=== PATIENT | male | born 1960 | race Caucasian/White ===

== ENCOUNTER 2019-10-06 05:09 | Inpatient (IN) ==
--- NOTE | 2019-09-07 14:30 | PAT Medication Instructions ---
Medication Instructions Date of Service September 07, 2019 Home Medications celecoxib 200 mg capsule 200 mg PO QAM acetaminophen [Tylenol Extra Strength] 1,000 mg PO Q6H PRN ASK your surgeon for instructions celecoxib 200 mg capsule 200 mg PO QAM Take morning of surgery With a small sip of water, OTHERWISE NOTHING TO EAT OR DRINK AFTER MIDNIGHT: acetaminophen [Tylenol Extra Strength] 1,000 mg PO Q6H PRN (okay to take up to 4 hours prior to surgery if needed) Take evening before surgery acetaminophen [Tylenol Extra Strength] 1,000 mg PO Q6H PRN (if needed) Other Notes If you have any questions please call us at [phone] or [phone] or [phone] or [phone]
--- NOTE | 2019-09-08 13:51 | Anesthesiology Consultation ---
Date of Service September 08, 2019 Assessment & Plan (1) Encounter for pre-operative examination: Chart Review Chart Review: Acceptable Risk for Surgery and Patient seen in Pre Admission Testing Teaching & Discussion Instructed NPO after midnight before surgery, except medications with 15 cc of water. Medication instructions provided according to the PAT guidelines. History Surgery Operation Date: 10/06/19 10:55 Proposed Procedures p Right Total Hip Replacement - Michael Alvarez MD Height/Weight Height: 5 ft 6 in Weight: 81.6 kg Allergies Allergy/AdvReac Type Severity Reaction Status Date / Time No Known Allergies Allergy Verified 09/06/19 08:10 Medications Home Medications Medication Instructions Recorded Confirmed Last Taken celecoxib 200 mg capsule 200 mg PO QAM 08/19/19 09/06/19 Unknown acetaminophen [Tylenol Extra 1,000 mg PO Q6H PRN 09/06/19 09/06/19 Unknown Strength] Past Medical History Medical History Degenerative joint disease of right hip Kidney stones Osteoarthritis Exercise / Class Metabolic Activity II 4-5 Yardwork/Stairs/Walk up hill (Denies CP or SOB with 1 FOS) Past Family History Family History Father Family history of diabetes mellitus Past Surgical History Surgical History History of colonoscopy History of cystoscopy STONE REMOVAL History of lithotripsy Hx of vasectomy [place] teeth removed Past Anesthesia History No Hx of Anesthesia Complications and No Family Hx of Anesthesia Complications History of PONV No Hx of PONV and No Hx of Motion Sickness Social History Smoking Status: Never smoker tobacco type: smokeless tobacco Do You Dip or Chew Tobacco: Yes (ADVISED NONE AM DOS) Hx Alcohol Use: Yes Alcohol type: beer alcohol intake frequency: a few times a week Hx Substance Use: No substance use type: does not use Review of Systems Pt denies any recent chest pain, shortness of breath, palpitations, cough, fever or URI. +common cold symptoms currently resolving Physical Exam Vital Signs BP: 162/87 -- pt seen by PCP 09/07, BP 130/70. P: 78bpm SPO2: 96% RA T: 98.9 F R: 12 ENMT Mouth: + dental restorations (partial upper); no chipped teeth and no loose teeth Thyromental Distance: > or= 3.5 Finger Breadths (3.5) Mallampati Class: II Neck + short neck; neck extension not limited Respiratory normal respiratory effort Auscultation: lungs clear to auscultation bilaterally Cardiovascular Rate/Rhythm: regular rate and regular rhythm Heart Sounds: no murmur Vessels: no carotid bruit Extremities: no edema Testing Laboratory Results 09/08/19 14:02 PT 10.4 Seconds (9.0-12.0) 09/08/19 14:02 INR 1.0 (0.9-1.1) 09/08/19 14:02 APTT 25.3 Seconds (21.0-31.0) 09/08/19 14:02 Blood Type O Positive 09/08/19 14:02 Antibody Screen NEGATIVE 09/08/19 14:02 09/07/19 SODIUM: 140 POTASSIUM: 4.6 CHLORIDE: 104 CO2: 27 BUN: 25 CREATININE: 1.1 GLUCOSE: 96 Electrocardiogram Date: 09/08/19 Findings: + NSR @ (70bpm) Left axis deviation. iRSR' pattern in V1 suggests RVCD. Moderate voltage criteria for LVH, may be normal variant. No significant change from EKG from 05/03/11. Chest X-Ray Date: 09/08/19 Findings: + NAD
--- NOTE | 2019-09-08 14:19 | XRay Report ---
XR chest Pre-admission PA/Lat CLINICAL HISTORY: PAT preoperative COMPARISON STUDY: No previous studies for comparison. FINDINGS: The bones soft tissues and hemidiaphragms are normal. The cardiomediastinal silhouette is n ormal. The lungs are clear. The pulmonary vasculature is normal. IMPRESSION: Negative chest. The above report was generated using voice recognition software. It may contain grammatical, syntax or spelling errors. Electronically signed by: Rodriguez Romero M.D. 09/08/2019 2:18 PM
[2019-09-08 14:39] LABS: Basophils # (auto) 0.02 K/uL (0-0.2); Basophils % (auto) 0.2 %; Eosinophils # (auto) 0.16 K/uL (0-0.5); Hemoglobin 15.2 g/dL (14.0-18.0); Immature Granulocytes # (auto) 0.02 K/uL (0.00-0.02); Immature Granulocytes % (auto) 0.2 %; Lymphocytes # (auto) 1.76 K/uL (1.2-3.4); Lymphocytes % (auto) 21.8 %; Mean Corpuscular Hemoglobin 30.7 pg (25-34); Mean Corpuscular Volume 92.9 fL (80-100); Mean Platelet Volume 9.1 fL (7.4-10.4); Monocytes # (auto) 0.43 K/uL (0.11-0.59); Monocytes % (auto) 5.3 %; Neutrophils % (auto) 70.5 %; Platelet Count 263 K/uL (130-400); RDW Coefficient of Variation 13.4 % (11.5-14.5); RDW Standard Deviation 45.6 fL (36.4-46.3); Red Blood Count 4.95 M/uL (4.7-6.1); White Blood Count 8.09 K/uL (4.8-10.8)
[2019-09-08 14:48] LABS: Partial Thromboplastin Ratio 0.9; Partial Thromboplastin Time 25.3 Seconds (21.0-31.0); Prothrombin Time 10.4 Seconds (9.0-12.0)
--- NOTE | 2019-09-19 11:06 | History and Physical Report ---
DATE OF ADMISSION: 10/06/2019 CHIEF COMPLAINT: Right hip pain, groin pain. 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 He has several year history of right hip pain and discomfort. He describes it has gotten worse over time. He saw my partner, Dr. Lehman and now referred to me for surgical treatment. He describes groin pain, thigh pain. No back pain. He has a walking tolerance of about 2 blocks before it really starts to hurt. He takes anti-inflammatories with minimal relief. He would like to have his hip replaced. He has difficulty putting his shoes and socks on. He has nighttime pain. PAST MEDICAL HISTORY: Noncontributory. PREVIOUS SURGERIES: None. ALLERGIES: None. CURRENT MEDICINES: Include: 1. Celebrex. 2. Tylenol. SOCIAL HISTORY: A 59-year-old male. He is . Works construction. Does not smoke. Six drinks per week. FAMILY HISTORY: Noncontributory. REVIEW OF SYSTEMS: Negative for diabetes, neurologic problem, vascular problems or bleeding disorders. Denies any chest pain or shortness of breath. No history of DVT or PE. PHYSICAL EXAMINATION: GENERAL: Reveals a healthy, pleasant, middle-aged male. Looks to be in good health. HEENT: Benign. NECK: Supple. No lymphadenopathy. LUNGS: Clear to auscultation. HEART: Regular rate and rhythm. ABDOMEN: Soft, nontender, nondistended. EXTREMITIES: Grossly neurovascularly intact except as follows. Examination of the right hip reveal the patient walks with slightly antalgic gait. Leg lengths appear pretty equal clinically. He does have pain with any type of hip motion. He can internally rotate to neutral. External rotation at 25 degrees. Negative straight leg raise. No knee effusion. X-RAYS: X-rays of the right hip were reviewed. It shows advanced hip DJD. He has got complete loss of the superior joint space. He has got cystic change of the femoral head and a pretty large acetabular cyst as well. He has got a little flattening of the femoral head. He got osteophytes medially as well as around the femoral head. 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 He has failed conservative treatment and would like to have his hip replaced. PLAN: We will take him to the Operating Room and do a right total hip replacement. The risks and benefits of this procedure were explained to the patient including but not limited to DVT, PE, , infection, neurological injury, vascular injury, bleeding problem, pain, limited range of motion, stiffness, failure to relieve symptoms, incomplete relief of symptoms, need for further surgery in future, fracture, leg length inequality, nerve palsy, dislocation, etc. The patient understands and desires to proceed. Informed consent was obtained. As far as discharge plans, he should be able to be discharged to home using [facility].
[2019-10-06] MEDS ORDERED: LR 500ML BOLUS, THEN 15ML/HR IV SCH (06:00)
[2019-10-06] MEDS ORDERED: METOCLOPRAMIDE HCL 10 MG TABLET PO SCH (06:00)
[2019-10-06] MEDS ORDERED: TRANEXAMIC ACID 1,000 MG **IV Pre-op IV SCH (06:00)
[2019-10-06] MEDS ORDERED: ACETAMINOPHEN 500 MG TAB PO SCH (06:00)
[2019-10-06] MEDS ORDERED: SCOPOLAMINE 1.5 MG TDSY TD SCH (06:00)
[2019-10-06] MEDS ORDERED: CEFAZOLIN 2000MG 2,000 MG/15 ML SYR IV SCH (06:00)
[2019-10-06] MEDS ORDERED: FAMOTIDINE 20 MG TAB PO SCH (06:00)
[2019-10-06] MEDS ORDERED: LR 60ML/HR IV SCH (06:00)
[2019-10-06] MEDS ORDERED: GABAPENTIN 600 MG DOSE PO SCH (06:00)
[2019-10-06] MEDS ORDERED: PROPOFOL IV EMULSION 10 MG/ML 20 ML VIAL IV ONE ×3 (06:22→08:04)
[2019-10-06] MEDS ORDERED: MIDAZOLAM HCL 1 MG/ML 2ML VIAL ONE (06:22)
[2019-10-06] MEDS ORDERED: ONDANSETRON INJ 2 MG/ML 2 ML VIAL ONE (06:22)
[2019-10-06] MEDS ORDERED: DEXAMETHASONE SOD INJ 4 MG/ML VIAL ONE ×2 (06:22→07:57)
[2019-10-06] MEDS ORDERED: LIDOCAINE HCL 2% 2 ML VIAL/AMP(20MG/ML) INFIL ONE (06:22)
[2019-10-06] MEDS ORDERED: BUPIVACAINE 0.5 % 5 MG/1 ML PF 10ML VIAL ONE (06:28)
[2019-10-06] MEDS ORDERED: ePHEDrine sulfate 50 MG/ML AMP IV PRN (06:47)
[2019-10-06] MEDS ORDERED: HYDROmorphone INJ 2 MG/ML SYR/VIAL IV PRN (06:47)
[2019-10-06] MEDS ORDERED: ATROPINE SULFATE 0.1 MG/ML 10ML SYR IV PRN (06:47)
[2019-10-06] MEDS ORDERED: ONDANSETRON INJ 2 MG/ML 2 ML VIAL IV PRN ×2 (06:47→09:46)
[2019-10-06] MEDS ORDERED: fentaNYL citrate 100 MCG/2 ML VIAL IV PRN (06:47)
--- NOTE | 2019-10-06 06:56 | History & Physical Bridge Note ---
Date of Service October 06, 2019 History & Physical Bridge Note I have examined the patient, reviewed the History & Physical and in the interval since the performance of the History & Physical I have noted the following changes of clinical significance: no changes noted
[2019-10-06] MEDS ORDERED: BACITRACIN INJ 50,000 UNIT VIAL ONE (07:04)
[2019-10-06] MEDS ORDERED: EPINEPHrine INJ 1 MG/ML AMP ONE (07:04)
[2019-10-06] MEDS ORDERED: BUPIVACAINE 0.5 % 5 MG/1 ML MPF 30ML VIAL ONE (07:04)
[2019-10-06] MEDS ORDERED: ePHEDrine sulfate 50 MG/ML SYR ONE (07:38)
[2019-10-06] MEDS ORDERED: PHENYLEPHRINE 100MCG/ML 5ML SYR ONE (07:50)
--- NOTE | 2019-10-06 08:46 | Post Operative Brief Note ---
PG Immediate Post Op with CF Date of Surgery October 06, 2019 Pre & Post Diagnosis Operation Date: 10/06/19 07:15 Pre-Op Diagnosis: Right Hip Degenerative Joint Disease Post-Op Diagnosis: Right Hip Degenerative Joint Disease I identified the patient and participated in the time-out.: Yes Procedure Operation Date: 10/06/19 07:15 Actual Procedures p Right Total Hip Replacement(Right) - Michael Alvarez MD Surgeon Michael Alvarez MD Supervisor [employer] Alvaro, PAC Estimated Blood Loss 300 Findings Consistent with Post-Op Diagnosis Fluids 1100 cc Specimens Specimen Description: Permanent A: Right Femoral Head Drains Renee Catheter Anesthesia Type Spinal MAC Complications none Disposition Accompanied Patient To Recovery: Yes Disposition: Recovery Room
--- NOTE | 2019-10-06 09:10 | Anesthesiology Progress Note ---
Date of Service October 06, 2019 Anesthesia Post Procedure Vital Signs Vital Signs: Temp Pulse Pulse Resp BP Pulse Ox 10/06/19 09:05 78 20 118/66 97 10/06/19 08:55 78 18 123/64 99 10/06/19 08:48 36.2 C L 79 18 137/77 98 10/06/19 05:39 36.9 C 73 20 170/99 H 96 Pain Intensity Right Hip: Pain Intensity: 0 Transfer of Care Handoff Completed per policy Notes Mental Status: alert / awake / arousable and participated in evaluation Patient Amnestic to Procedure: Yes Nausea / Vomiting: adequately controlled Pain: adequately controlled Airway Patency, RR, SpO2: stable & adequate BP & HR: stable & adequate Hydration State: stable & adequate Neuraxial Anesthesia: was administered and sensory block is resolving Anesthetic Complications: no major complications apparent and Pt Satisfied with anesthetic care
--- NOTE | 2019-10-06 09:21 | XRay Report ---
XR hip 1V RT w pelvis CLINICAL HISTORY: Postoperative evaluation. COMPARISON: Pelvis radiographs June 07, 2019. FINDINGS: Alignment of the total right hip arthroplasty is anatomic. There is no periprosthetic frac ture or unexpected radiopaque foreign body. There are 2 acetabular screws. There are skin alejandro. IMPRESSION: Expected findings following total right hip arthroplasty. ACT 112: Negative or not required by law. Electronically signed by: Jermaine Starr M.D. 10/06/2019 9:20 AM
[2019-10-06] MEDS ORDERED: HYDROmorphone INJ 0.5 MG/0.5 ML SYR IV PRN (09:46)
[2019-10-06] MEDS ORDERED: bisacodyL 10 MG SUPP PR PRN (09:46)
[2019-10-06] MEDS ORDERED: TAMSULOSIN HCL 0.4 MG CAP PO PRN (09:46)
[2019-10-06] MEDS ORDERED: METOCLOPRAMIDE HCL INJ 5 MG/ML 2 ML VIAL IV PRN (09:46)
[2019-10-06] MEDS ORDERED: ALUMINUM/MAGNESIUM SUSP 30 ML UDC PO PRN (09:46)
[2019-10-06] MEDS ORDERED: MAGNESIUM HYDROXIDE SUSP 30 ML UDC PO PRN (09:46)
[2019-10-06] MEDS ORDERED: TRAMADOL HCL 50 MG TABLET PO PRN (09:46)
[2019-10-06] MEDS ORDERED: NALOXONE HCL 0.4 MG/1 ML VIAL/CARP IV PRN (09:46)
[2019-10-06] MEDS: KETOROLAC 30 MG/ML VIAL IV SCH ×3 (10:48→22:28)
[2019-10-06] MEDS: DOCUSATE SODIUM 100 MG CAP PO SCH ×2 (10:48→21:37)
[2019-10-06] MEDS: MULTIVITAMIN TAB PO SCH (10:48)
[2019-10-06] MEDS: ASPIRIN 81 MG ECTAB PO SCH ×2 (10:56→21:37)
[2019-10-06] MEDS: SODIUM CHLORIDE 0.9% 1000ML 1,000 ML IV SCH ×2 (10:57→19:03)
[2019-10-06] MEDS: ACETAMINOPHEN 500 MG TAB PO SCH ×2 (13:56→21:37)
[2019-10-06] MEDS: CEFAZOLIN 2000MG 2,000 MG/15 ML SYR IV SCH ×2 (14:44→23:38)
[2019-10-06] MEDS ORDERED: TRANEXAMIC ACID / 0.7% NACL 1,000 MG/100 ML BAG IV SCH (15:00)
[2019-10-06] MEDS: CHECK SCOPOLAMINE PATCH PLACEMENT SCH ×2 (15:53→23:38)
[2019-10-06] MEDS: ASCORBIC ACID 500 MG TAB PO SCH (16:24)
[2019-10-06] MEDS: FERROUS GLUCONATE 324 MG TAB PO SCH (16:24)
--- NOTE | 2019-10-06 18:13 | Operative Report ---
Post Operative Report Pre & Post Diagnosis Operation Date: 10/06/19 07:15 Pre-Op Diagnosis: Right Hip Degenerative Joint Disease Post-Op Diagnosis: Right Hip Degenerative Joint Disease I identified the patient and participated in the time-out.: Yes Procedure Operation Date: 10/06/19 07:15 Actual Procedures p Right Total Hip Replacement(Right) - Michael Alvarez MD Surgeon Michael Alvarez MD Payment Specialist Alvaro, PAC Estimated Blood Loss 300 Findings Consistent with Post-Op Diagnosis Operative findings revealed advanced right knee DJD with a large hip joint effusion. He had grade 4 [id number] disease of the femoral head and acetabulum and some small anterior acetabular osteophytes. Fluids 1100 cc Specimens Right femoral head sent for pathology. Drains None. Anesthesia Type Spinal MAC Complications none Disposition Accompanied Patient To Recovery: Yes Disposition: Recovery Room Indications Patient is a 59-year-old very active gentleman whose had a 3-year history of increasing right hip pain discomfort unresponsive conservative care. X-rays show advanced right hip DJD. He would like to proceed with surgical treatment. Description of Procedure Operative implants consisted of: 1. Biomet G7 size 52 mm acetabular shell. 2. Highly cross-linked polyethylene liner with a 52 mm outer diameter and 32 mm inner diameter with a cifuentes placed inferior and posterior. 3. Romeo hole eliminator. 4. 6.5 cancellus acetabular screws 1 a 35 mm in length and 1 to 20 mm length. 5. Depuy Corail size 10 KLA femoral stem. 6. +/32 mm ceramic articular ball. Patient taken to the operating room identified and placed on the operating table supine position. All contact areas were appropriately padded. A spinal anesthetic had been implemented in the holding area. Renee catheter was placed in sterile fashion. Patient then placed in the left lateral decubitus position. Axillary roll was placed. Stulberg hip positioner was used for positioning. The right hip and leg were then prepped and draped in usual sterile fashion. A posterior lateral approach to the right hip was then performed to a curvilinear incision centered over the greater trochanter. Sharp dissection was carried out through subcutaneous tissue down below the IT band gluteal fascia the IT band gluteal fascia incised longitudinally in line with skin incision. The underlying greater bursa was excised. The piriformis and external rotators were tagged and taken off the posterior aspect of the hip joint capsule. Great care was taken throughout the procedure to protect the sciatic nerve at all times. Posterior capsulotomy was then performed leaving a large flap for later repair. Hip was internally rotated and dislocated. Femoral neck osteotomy cut was made with Final Cut 8 mm above the lesser trochanter. Femoral head was removed and sent for pathology. The femur was retracted anteriorly. Attention drawn the acetabulum. The acetabular labrum was excised. Pulmonary fat was excised. Sequential reaming the acetabular was then performed begin with size 43 and progressing up to 51. A 52 mm Biomet G7 acetabular shell was then placed in about 40 degrees lateral opening and 20 degrees of anteversion. It was fixed with two 6.5 cancellus acetabular screws. Trial liner was placed. An anterior osteophyte was removed. Attention drawn the femur. The proximal femur was entered with a cookie-cutter followed by canal finder. Then broached beginning with size 8 and progressing up to a 10. Got excellent fit of the 10 and he had excellent I cancellus bone. I elected to stop there. Calcar reamer was used smooth and off the calcar. I then trialed the hip with a different neck length options. 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 We elect to place a + articular ball in order to maximize his stability and equalize his leg lengths. The hip was fully stable in full extension and external rotation flexion to 90 degrees and internal rotation to 50 degrees. I did elect to place a hip inferior and posterior to maximize the stability in flexion. We elect to place these implants. All trial implants were removed. An apex hole eliminator was placed. A highly cross-linked polyethylene liner was placed. A [place] Corail size 10 KLA femoral stem was impacted in position. +/32 mm ceramic articular ball was placed. Hip was located once again found to be stable. Attention turned toward closing. Wounds irrigated with copious amounts of pulsatile lavage solution. I did inject locally with 60 cc of half percent Marcaine with epinephrine. Patient did receive 1 g of tranexamic acid. The posterior capsule and external rotators were repaired through drill holes in the posterior trochanter with #2 Tycron suture. The IT band gluteal fascia then closed in 1 PDS suture in running fashion. Subcutaneous tissue then closed with 2 layers the deep layer #1 Vicryl suture and subcutaneous tissues with 2-0 Dexon suture in a buried interrupted fashion. Skin was closed skin alejandro. Leg was then cleaned dried and sterile dressing composed of Xeroform, 4 x 4's, sterile ABD pad and foam tape was applied. Patient then transferred to the recovery room in stable condition. The patient tolerated the procedure well no complications. I attest to the content of the Intraoperative Record and any orders documented therein. Any exceptions are noted below.
--- NOTE | 2019-10-06 20:45 | Progress Note ---
DATE: 10/06/2019 SUBJECTIVE: A 59-year-old gentleman postop from a right hip replacement. He is doing well. Minimal pain. He denies any chest pain or shortness of breath. Not feeling dizzy or lightheaded. OBJECTIVE: VITAL SIGNS: Temperature 36.6. Vital signs stable. GENERAL: Physical examination shows a pleasant, middle-aged male. He was sitting up in his bedside chair, eating dinner when I visited him this evening. LUNGS: Clear to auscultation. HEART: Has a regular rate and rhythm. ABDOMEN: Soft, nontender, nondistended. EXTREMITIES: Grossly neurovascularly intact except as follows: Examination of the right hip and leg reveals the dressing to be clean, dry and intact. His leg lengths are equal. He can dorsiflex and plantarflex his foot appropriately. He is neurologically intact. X-RAYS: X-rays of the right hip from recovery room reviewed. It shows a right uncemented total hip arthroplasty. Components looked to be in good position. No signs of problems. ASSESSMENT: A 59-year-old gentleman postop from right hip replacement, doing well. Hip is located. He is neurologically intact. PLAN: 1. DVT prophylaxis including thigh-high TEDs, SCDs, and aspirin twice a day. 2. PT/OT. Weight bear as tolerated. Right total hip protocol. 3. Pain control, doing well with current pain regimen. 4. IV antibiotics x24 hours. 5. Disposition: Plan to discharge to home with some home health once adequately recovered and medically stable.
[2019-10-06] MEDS ORDERED: SENNA 8.6 MG TAB PO SCH (21:00)
[2019-10-07] MEDS: SODIUM CHLORIDE 0.9% 1000ML 1,000 ML IV SCH (01:26)
[2019-10-07] MEDS: ACETAMINOPHEN 500 MG TAB PO SCH (05:24)
[2019-10-07] MEDS: KETOROLAC 30 MG/ML VIAL IV SCH (05:24)
[2019-10-07 06:15] LABS: Basophils # (auto) 0.01 K/uL (0-0.2); Basophils % (auto) 0.1 %; Eosinophils # (auto) 0.02 K/uL (0-0.5); Eosinophils % (auto) 0.1 %; Hematocrit (blood only) 37.3 % (42-52); Hemoglobin 12.2 g/dL (14.0-18.0); Immature Granulocytes # (auto) 0.03 K/uL (0.00-0.02); Immature Granulocytes % (auto) 0.2 %; Lymphocytes # (auto) 1.61 K/uL (1.2-3.4); Lymphocytes % (auto) 11.7 %; Mean Corpuscular Hemoglobin 30.4 pg (25-34); Mean Corpuscular Hgb Conc 32.7 g/dL (32-36); Mean Platelet Volume 9.2 fL (7.4-10.4); Monocytes # (auto) 1.08 K/uL (0.11-0.59); Monocytes % (auto) 7.9 %; Neutrophils # (auto) 10.97 K/uL (1.4-6.5); Platelet Count 213 K/uL (130-400); RDW Coefficient of Variation 13.6 % (11.5-14.5); RDW Standard Deviation 46.4 fL (36.4-46.3); Red Blood Count 4.01 M/uL (4.7-6.1); White Blood Count 13.72 K/uL (4.8-10.8)
[2019-10-07 06:53] LABS: BUN Creatinine Ratio 17.3 (10-20); Calcium 8.8 mg/dl (8.5-10.1); Creatinine Clr Calc Pharmacy 86.5 ml/min; Est GFR (African American) 104.5; Est GFR (Non-African American) 90.2; Potassium 4.2 mmol/L (3.5-5.1)
--- NOTE | 2019-10-07 07:14 | Orthopedic Progress Note ---
Date of Service October 07, 2019 Assessment & Plan (1) History of hip replacement: discharge planning: possibly home later today with home health. continue dvt prophylaxis: teds, scds, aspirin PT/OT WBAT, total hip precautions. He was seen and examined by Dr. Alvarez. Subjective POD #1 from right VIRGIL. Pain is controlled. He's been out of bed and walked to the chair in his room yesterday. No chest pain or shortness of breath. Physical Exam Physical Exam: alert and oriented. NAD. Dressing clean, dry, intact. hip located. leg well aligned. NVI. Results & Data Vital Signs (Past 12 Hours) Vital Signs Temp Pulse Resp BP Pulse Ox 10/07/19 03:25 36.9 C 62 18 111/69 96 10/06/19 23:23 36.8 C 63 18 114/69 96 10/06/19 19:20 36.6 C 64 18 150/77 H 95 PG Care Time/CCT Total # of Minutes Spent Total Time Spent with Patient: Total time spent is greater than 50% in coordination of care (as documented) at patient's floor/unit and/or counseling patient: Coding Level of Care Code None Diagnoses History of hip replacement Z96.649
[2019-10-07] MEDS: ASPIRIN 81 MG ECTAB PO SCH (07:31)
[2019-10-07] MEDS: MULTIVITAMIN TAB PO SCH (07:31)
[2019-10-07] MEDS: DOCUSATE SODIUM 100 MG CAP PO SCH (07:31)
[2019-10-07] MEDS: FERROUS GLUCONATE 324 MG TAB PO SCH (07:31)
[2019-10-07] MEDS: ASCORBIC ACID 500 MG TAB PO SCH (07:31)
--- NOTE | 2019-10-08 16:31 | Discharge Summary ---
ADMITTING PHYSICIAN AND SURGEON: Dr. Michael Alvarez. ADMITTING DIAGNOSIS: Right hip degenerative joint disease. SURGERY PERFORMED: Right total hip arthroplasty. SECONDARY DIAGNOSES: Noncontributory. CONSULTS: None obtained. HISTORY AND PHYSICAL EXAMINATION: Well documented in the patient's chart. HOSPITAL COURSE: The patient was admitted on 10/06/2019 underwent total hip arthroplasty, tolerated the procedure well. There were no complications. He was transferred to the PACU postoperatively and later to the orthopedic floor for further care. He was given Ancef for antibiotic prophylaxis, LUANA stockings, SCDs and aspirin for DVT prophylaxis. Hemoglobin, hematocrit and vital signs were monitored during his hospital stay and remained stable, did not require any blood transfusions. There were no complications. On postoperative day 1, he was tolerating a regular diet, pain was controlled with oral pain medicine. He was participating in physical therapy. Postop day 1, he was discharged home, set up with home health services, given printed discharge instructions as well as new prescriptions for extra strength Tylenol, aspirin and tramadol. Continue his home medicines with the exception of his home dose of Tylenol. Continue physical therapy, weightbearing as tolerated, LUANA stockings, total hip precautions. Follow up approximately 2 weeks postop or sooner if there are any problems or concerns.
== END 2019-10-07 11:21 | disposition home health service (06) | DRG 470 ==
LOC: ASU 05:09 → 3E 08:49
DX: M16.11 Unilateral primary osteoarthritis, right hip